=== PATIENT | male | born 1965 | race Caucasian/White ===

== ENCOUNTER 2016-10-07 11:30 | Emergency (ER) | payer MEDICAID ==
[2016-10-07] MEDS ORDERED: IBUPROFEN 600 MG TABLET PO ONE (11:47)
--- NOTE | 2016-10-07 12:01 | Emergency Department Record ---
History of Present Illness - General Chief complaint: Extremity Problem Stated complaint: RT HAND INJURY Time Seen by Provider: 10/07/16 11:40 Source: Patient Mode of Arrival: Ambulatory Limitations: No limitations - History of Present Illness Initial comments: The patient is here due to R 2nd finger pain over the finger tip. He had a rock get shot out of a lawnmower and it hit his 2nd finger injuring the finger tip. The nail did was partially avulsed but is still in place. His Td is UTD. MD Complaint: Extremity pain Onset/Timin -: Minutes(s) Location: Right, Hand History of Same: No Radiation: Proximal Severity scale (1-10): 10 Quality: Stabbing Consistency: Constant Improves with: Nothing Worsens with: Nothing Associated Symptoms: Denies other symptoms - Related Data Previous Rx's Medication Instructions Recorded Cephalexin [Keflex] 500 mg PO QID #20 cap 10/07/16 Hydrocodone/Acetaminophen [[place] 1 - 2 each PO .EVERY 4-6 HRS PRN 10/07/16 5-325 Tablet] #15 tablet Allergies Allergy/AdvReac Type Severity Reaction Status Date / Time clarithromycin [From Biaxin] Allergy RASH Verified 10/07/16 11:35 sertraline HCl [From Zoloft] AdvReac BEHAVIORAL Verified 10/07/16 11:35 CHANGES Travel Screening - Travel/Exposure Within Last 30 Days Have you traveled within the last 30 days?: No Review of Systems Constitutional: Denies: Chills, Fever Eyes: Denies: Eye discharge ENT: Denies: Congestion Respiratory: Denies: Cough Past Medical History - SOCIAL HISTORY Smoking Status: Light tobacco smoker (<10/day) Alcohol Use: None Drug Use: None - RESPIRATORY Hx Respiratory Disorders: No - CARDIOVASCULAR Hx Cardio Disorders: Yes Hx Hypertension: Yes - NEURO Hx Neuro Disorders: No - GI Hx GI Disorders: Yes Comment:: ulcerative cololitis. rectal infection x 3 yrs - Hx Genitourinary Disorders: No - ENDOCRINE Hx Endocrine Disorders: No - MUSCULOSKELETAL Hx Musculoskeletal Disorders: No - PSYCH Hx Psych Problems: No Hx Anxiety: Yes Hx Depression: Yes - HEMATOLOGY/ONCOLOGY Hx Hematology/Oncology Disorders: No Family Medical History Any Significant Family History?: Yes Hx Cancer: Father Hx Resp Disorders: Mother Physical Exam - General General Appearance: Alert, Oriented x3, Cooperative, No acute distress - Head Head exam: Atraumatic, Normocephalic, Normal inspection - Eye Eye exam: Normal appearance, PERRL - Extremities Extremities exam: Full ROM (There is normal flexion and extension of the DIP joint. ), Normal capillary refill, Tenderness (There is tenderness around the fingernail and slight bleeding underneath the nail but it is still firmly in place. ). negative: Normal inspection (There is slight swelling to the R 2nd finger tip. ), Joint swelling Course Vital Signs 10/07/16 11:36 Temperature 97.4 F L Pulse Rate 83 Respiratory 18 Rate Blood Pressure 154/100 Pulse Ox 97 - Reevaluation(s) Reevaluation #1: I did explain to the patient that it appears the xrays are WNL's. There may be a very slight subtle chip fx at the distal end of the distal phalynx but it clinically is very stable. He is to keep the tube gauze in place for 2 days, take the Keflex and watch for signs of infection. 10/07/16 12:26 Medical Decision Making - Data Complexity MDM Data: X-Ray Ordered and/or Reviewed - Radiology Data Radiology results: Report reviewed (R 2nd finger: No obvious fx.) Disposition Disposition: Discharge Clinical Impression: Fingertip contusion Qualifiers: Encounter type: initial encounter Qualified Code(s): S60.00XA - Contusion of unspecified finger without damage to nail, initial encounter Disposition: Home, Self-Care Condition: (1) Good Instructions: Jammed Finger (ED) Additional Instructions: Please wear the tube gauze splint for 2 days then keep antibiotic ointment on the fingertip with a bandaid. Take the Keflex for 5 days and use Tylenol or Motrin for pain. Please return to the ER for any increased pain, swelling, redness or drainage. Use [place] for pain if needed. Prescriptions: Cephalexin [Keflex] 500 mg PO QID #20 cap Hydrocodone/Acetaminophen [[place] 5-325 Tablet] 1 - 2 each PO .EVERY 4-6 HRS PRN #15 tablet PRN Reason: Pain Forms: Patient Portal Access Time of Disposition: 12:01
== END 2016-10-07 12:18 | disposition home or self-care (01) ==
LOC: ER 11:30
DX: S60.131A Contusion of right middle finger with damage to nail, initial encounter (principal); W22.8XXA Striking against or struck by other objects, initial encounter; Y93.H9 Activity, other involving exterior property and land maintenance, building and construction
CPT/HCPCS: 73140; 99283